=== PATIENT | female | born 1955 | race Caucasian/White ===

== ENCOUNTER 2021-09-27 07:48 | Observation (INO) | payer MEDICARE, BC, SELFPAY ==
[2021-09-27] VITALS (12 sets, daily range): BP systolic 100–153; BP diastolic 53–83; PULSE 46–67; RESP 10–18; TEMP 36.2–36.9; O2SAT 96–100; BMI 22.7; BMI 22.3
--- NOTE | 2021-09-27 08:05 | CRLHL7_ITS ---
For Patients: As a result of the Century Cures Act, medical imaging exams and procedure reports are released immediately into your electronic medical record. You may view this report before your referring provider. If you have questions, please contact your health care provider. INDICATION: Fall, hit back of head. TECHNIQUE: CT head without contrast. COMPARISON: None. FINDINGS: CSF spaces: Within normal limits for age. Brain parenchyma and extra-axial spaces: The kyle-white differentiation is normal. No sign of mass, hemorrhage, or midline shift. No extra-axial fluid collection. Skull base and calvarium: Posterior scalp laceration/contusion. The visualized paranasal sinuses and mastoid air cells demonstrate no acute or significant findings. The visualized orbits are grossly unremarkable. No skull fractures. IMPRESSION: Posterior scalp laceration/contusion. No intracranial hemorrhage. No displaced skull fracture. Please note that all CT scans at this facility use dose modulation, iterative reconstruction, and/or weight-based dosing when appropriate to reduce radiation dose to as low as reasonably achievable. Dictated by Raymond Sheridan MD @ 09/27/2021 8:56:19 AM (Electronically Signed)
--- NOTE | 2021-09-27 08:08 | ED.GENADULT ---
HPI - General Adult General Time Seen by Provider: 08:08 Date Seen: 09/27/21 Chief complaint: Dizziness/Vertigo Stated complaint: Fainted, hit back head, on blood thinners Time Seen by Provider: 09/27/21 07:53 Source: patient Mode of arrival: ambulatory Limitations: no limitations History of Present Illness HPI narrative: The patient is a 66-year-old female was out walking today, felt dizzy, and fell back and hit the back of her head. She had no seizure activity, had no chest pain, had no focal neurologic weakness or changes. She just simply felt dizzy and then she fell backwards and passed out. In the last couple of weeks she started on Eliquis and metoprolol for paroxysmal atrial fibrillation, her EKG today shows sinus rhythm bradycardic at a rate of 51 beats per minute no acute ST T wave changes by my read. The patient still feels lightheaded, especially when she sits up. She has felt tired and a little bit lightheaded since she started the beta-juan. She is on Eliquis as well as mentioned, otherwise reports no significant health history. Her neck, back, pelvis, upper lower extremities are unremarkable for any injury or pain. She has had full range of motion of her neck. She is alert oriented x3 now Related Data Home Medications Medication Instructions Recorded Confirmed apixaban 5 mg tablet (Eliquis) 5 mg PO BID 09/27/21 09/27/21 biotin 1,000 mcg chewable tablet 2,000 mcg PO DAILY 09/27/21 09/27/21 calcium carbonate 500 mg calcium 500 mg PO DAILY 09/27/21 09/27/21 (1,250 mg) tablet (Oyster Shell Calcium) estradiol 0.01% (0.1 mg/gram) 1 g VAGINAL 2XW 09/27/21 09/27/21 vaginal cream levothyroxine 75 mcg tablet 75 mcg PO DAILY 09/27/21 09/27/21 metoprolol tartrate 25 mg tablet 12.5 mg PO BID 09/27/21 09/27/21 multivitamin with minerals-folic 2 tab PO DAILY 09/27/21 09/27/21 acid 200 mcg chewable tablet (Adult One Daily Gummies) Allergies Allergy/AdvReac Type Severity Reaction Status Date / Time No Known Drug Allergies Allergy Verified 09/27/21 10:03 Review of Systems Status of ROS: Reports: 10 or more systems reviewed and unremarkable except as noted in History and below [facility] Social History Smoking Status: Never smoker Second hand tobacco smoke exposure: No How often do you have a drink containing alcohol: monthly or less AUDIT-C Alcohol total score: 1 Non-prescribed substance use: denies use Exam Narrative: Exam Narrative: Objective: Patient is in no apparent distress, looks to slightly pale Vital signs as recorded HEENT is unremarkable other than a bit of bleeding in the back of her scalp this will need to be cleaned and we will examine it further, gloved exam shows no palpable step-off in the back of the skull occipital region. Pupils aggression light No facial asymmetry Pupil no mouth changes Neck is supple nontender no midline pain Chest nontender, lungs are clear, heart rhythm rhythm regular without murmur Abdomen benign Extremities are no edema neurologic nonfocal Skin is warm she is, slightly pale, mental status appropriate Const: Vital Signs, click to edit/add: Vital Signs - 24 hr 09/27/21 08:30 09/27/21 09:00 09/27/21 09:30 Temperature 98.5 F Pulse Rate [Right Pulse Oximeter] 46 L 48 L 48 L Respiratory Rate 18 16 16 Blood Pressure [Ri ght Upper Arm] 136/79 139/80 144/81 H Pulse Oximetry 98 98 100 09/27/21 10:00 09/27/21 11:00 Temperature Pulse Rate [Right Pulse Oximeter] 47 L 51 L Respiratory Rate 10 L 14 Blood Pressure [Ri ght Upper Arm] 153/83 H Pulse Oximetry 100 Course Vital Signs Vital signs: Initial Vital Signs Temperature 98.5 F 09/27/21 08:30 Temperature Source Temporal Artery Scan 09/27/21 08:30 Pulse Rate 53 L 09/27/21 08:30 Respiratory Rate 18 09/27/21 08:30 Blood Pressure 145/83 H 09/27/21 08:30 Blood Pressure Mean 103 09/27/21 08:30 Blood Pressure Position Sitting 09/27/21 08:30 Pulse Oximetry 97 09/27/21 08:30 Oxygen Delivery Method 09/27/21 08:30 Vital Signs Temperature 98.5 F 09/27/21 08:30 Pulse Rate 53 L 09/27/21 08:30 Respiratory Rate 18 09/27/21 08:30 Blood Pressure 145/83 H 09/27/21 08:30 Pulse Oximetry 97 09/27/21 08:30 Temperature 97.4 F L 09/27/21 15:12 Pulse Rate 48 L 09/27/21 15:12 Respiratory Rate 16 09/27/21 15:12 Blood Pressure 144/77 H 09/27/21 15:12 Pulse Oximetry 100 09/27/21 15:12 Medical Decision Making MDM Narrative Medical decision making narrative: Because the patient is on Eliquis and because of her syncopal episode and obvious head trauma will get a head CT scan without contrast. Will get a 90 minute cardiac rule-out protocol. Will get EKGs, IV fluids 1 L, electrolytes and labs. The patient was dizzy, which could be from her new beta-juan, or dehydration. Rule out acute coronary syndrome, rule out dehydration, electrolyte abnormality, neurologic issue. Addendum: The patient's head CT is negative by my review,, Radiology confirms. Procedure: The patient had a complex stellate laceration on the occipital area of her scalp mid occiput, there is no palpable step-off noted. After sterile splinting the wound was injected with 1% xylocaine with epinephrine, and closed with 3-0 simple ruptured sutures. The total laceration length was about 5 cm including the stellate arms of the laceration. Good skin is edge approximation good hemostasis. Patient get sutures removed in 7 days. Lab studies show a normal troponin, 2nd 1 will be done, EKG shows sinus bradycardia otherwise unremarkable. This will be repeated as well. Patient's laboratory studies otherwise look unremarkable. The exception would be her proBNP is elevated at 1290. Will repeat another troponin, and given the patient's dizziness lightheadedness with a beta-juan and her relative bradycardia I think she should stop this for now. Recheck with Dr. Horan in the next couple of days. And then consult with Cardiology as necessary. Light activity recommended at this point. Would hold Eliquis today and restart tomorrow. Dr. Stephen hernandez will accept the patient for observation given her bradycardia and elevated proBNP. Consulted with Cardiology they felt that simply stopping her beta juan was appropriate and monitoring. The patient still feels quite short dizzy when she gets out of bed or goes to the bathroom. I would anticipate she would improve her heart rate with the discontinuation of beta-juan over the next day, and be able to be discharged home. Further workup pending clinical situation. Lab Data Labs: Lab Results 09/27/21 09/27/21 09/27/21 Range/Units 08:00 08:00 08:00 WBC (4.50-11.00) K/uL RBC (4.00-5.20) m/uL Hgb (12.0-16.0) gm/dL Hct (33.0-51.0) % MCV (80-100) fL MCH (26-34) pg MCHC (32-36) gm/dL RDW Coeff of Frankie (11.5-15.5) % Plt Count (140-440) K/uL Neut % (Auto) (42.0-72.0) % Lymph % (Auto) (20-44) % Sampson % (Auto) (0.0-11.0) % Eos % (Auto) (0.0-7.0) % Baso % (Auto) (0.0-3.0) % Neut # (Auto) (1.7-7.0) K/uL Lymph # (Auto) (0.90-2.90) K/uL Sampson # (Auto) (0.00-0.90) K/UL Eos # (Auto) (0.00-0.50) K/uL Baso # (Auto) (0.00-0.30) K/uL Abs Immat Gran (auto) (0.00-0.30) K/uL INR 1.10 (0.91-1.10) APTT 32 (23-33) Seconds Sodium 138 (135-149) mmol/L Potassium 4.1 (3.6-5.1) mmol/L Chloride 108 (96-114) mmol/L Carbon Dioxide 24 (20-32) mmol/L BUN 22 (7-30) mg/dL Creatinine 0.9 (0.5-1.5) mg/dL Estimated Creat Clear 54.54 Estimated GFR 71 ml/min Glucose 130 H (60-115) mg/dL Lactate 1.8 (0.5-1.9) mmol/L Calcium 9.2 (8.4-10.6) mg/dL Total Bilirubin 1.0 (0.1-1.5) mg/dL Direct Bilirubin 0.1 (0.0-0.5) mg/dL AST 34 (12-35) U/L ALT 33 (4-35) U/L Alkaline Phosphatase 75 (40-150) U/L C-Reactive Protein 0.9 (0.5-1.0) mg/dL NT-Pro-B Natriuret Pep 1290 H (0-125) PG/mL Total Protein 7.9 (6.0-8.3) g/dL Albumin 4.3 (3.3-5.0) g/dL Amylase 98 H (18-89) U/L SARS-CoV-2 (PCR) (Negative) POC Troponin I (0.01-0.04) ng/ml 09/27/21 09/27/21 09/27/21 Range/Units 08:05 08:06 09:30 WBC (4.50-11.00) K/uL RBC (4.00-5.20) m/uL Hgb (12.0-16.0) gm/dL Hct (33.0-51.0) % MCV (80-100) fL MCH (26-34) pg MCHC (32-36) gm/dL RDW Coeff of Frankie (11.5-15.5) % Plt Count (140-440) K/uL Neut % (Auto) (42.0-72.0) % Lymph % (Auto) (20-44) % Sampson % (Auto) (0.0-11.0) % Eos % (Auto) (0.0-7.0) % Baso % (Auto) (0.0-3.0) % Neut # (Auto) (1.7-7.0) K/uL Lymph # (Auto) (0.90-2.90) K/uL Sampson # (Auto) (0.00-0.90) K/UL Eos # (Auto) (0.00-0.50) K/uL Baso # (Auto) (0.00-0.30) K/uL Abs Immat Gran (auto) (0.00-0.30) K/uL INR (0.91-1.10) APTT (23-33) Seconds Sodium (135-149) mmol/L Potassium (3.6-5.1) mmol/L Chloride (96-114) mmol/L Carbon Dioxide (20-32) mmol/L BUN (7-30) mg/dL Creatinine (0.5-1.5) mg/dL Estimated Creat Clear Estimated GFR ml/min Glucose (60-115) mg/dL Lactate (0.5-1.9) mmol/L Calcium (8.4-10.6) mg/dL Total Bilirubin (0.1-1.5) mg/dL Direct Bilirubin (0.0-0.5) mg/dL AST (12-35) U/L ALT (4-35) U/L Alkaline Phosphatase (40-150) U/L C-Reactive Protein (0.5-1.0) mg/dL NT-Pro-B Natriuret Pep (0-125) PG/mL Total Protein (6.0-8.3) g/dL Albumin (3.3-5.0) g/dL Amylase (18-89) U/L SARS-CoV-2 (PCR) Negative SARS-CoV-2 (Negative) POC Troponin I 0.00 L 0.00 L (0.01-0.04) ng/ml 09/27/21 Range/Units 09:41 WBC 10.75 (4.50-11.00) K/uL RBC 4.61 (4.00-5.20) m/uL Hgb 14.3 (12.0-16.0) gm/dL Hct 42.3 (33.0-51.0) % MCV 92 (80-100) fL MCH 31 (26-34) pg MCHC 34 (32-36) gm/dL RDW Coeff of Frankie 12.2 (11.5-15.5) % Plt Count 164 (140-440) K/uL Neut % (Auto) 77.1 H (42.0-72.0) % Lymph % (Auto) 14.5 L (20-44) % Sampson % (Auto) 6.7 (0.0-11.0) % Eos % (Auto) 1.3 (0.0-7.0) % Baso % (Auto) 0.1 (0.0-3.0) % Neut # (Auto) 8.30 H (1.7-7.0) K/uL Lymph # (Auto) 1.60 (0.90-2.90) K/uL Sampson # (Auto) 0.70 (0.00-0.90) K/UL Eos # (Auto) 0.14 (0.00-0.50) K/uL Baso # (Auto) 0.01 (0.00-0.30) K/uL Abs Immat Gran (auto) 0.03 (0.00-0.30) K/uL INR (0.91-1.10) APTT (23-33) Seconds Sodium (135-149) mmol/L Potassium (3.6-5.1) mmol/L Chloride (96-114) mmol/L Carbon Dioxide (20-32) mmol/L BUN (7-30) mg/dL Creatinine (0.5-1.5) mg/dL Estimated Creat Clear Estimated GFR ml/min Glucose (60-115) mg/dL Lactate (0.5-1.9) mmol/L Calcium (8.4-10.6) mg/dL Total Bilirubin (0.1-1.5) mg/dL Direct Bilirubin (0.0-0.5) mg/dL AST (12-35) U/L ALT (4-35) U/L Alkaline Phosphatase (40-150) U/L C-Reactive Protein (0.5-1.0) mg/dL NT-Pro-B Natriuret Pep (0-125) PG/mL Total Protein (6.0-8.3) g/dL Albumin (3.3-5.0) g/dL Amylase (18-89) U/L SARS-CoV-2 (PCR) (Negative) POC Troponin I (0.01-0.04) ng/ml Discharge Plan Discharge Clinical Impression: Syncope, Head injury Prescriptions: No Action levothyroxine 75 mcg tablet 75 mcg PO DAILY 0RF metoprolol tartrate 25 mg tablet 12.5 mg PO BID 0RF Eliquis 5 mg tablet 5 mg PO BID 0RF estradiol 0.01 % (0.1 mg/gram) cream 1 g VAGINAL 2XW 0RF Label Comments: INSERT 1 GRAM INTO THE VAGINA EVERY SATURDAY AND SATURDAY. Adult One Daily Gummies 200 mcg tablet,chewable 2 tab PO DAILY 0RF calcium carbonate [Oyster Shell Calcium] 500 mg calcium (1,250 mg) tablet 500 mg PO DAILY 0RF biotin 1,000 mcg tablet,chewable 2,000 mcg PO DAILY 0RF Follow Up/Referrals: Tammi Garnica DO [Primary Care Provider] -
[2021-09-27 08:28] LABS: Lactate* 1.8 mmol/L (0.5-1.9)
[2021-09-27 08:44] LABS: Albumin* 4.3 g/dL (3.3-5.0); Chloride* 108 mmol/L (96-114)
[2021-09-27 08:45] LABS: Potassium* 4.1 mmol/L (3.6-5.1); Sodium* 138 mmol/L (135-149)
[2021-09-27 08:47] LABS: Amylase* 98 U/L (18-89); Bilirubin Direct* 0.1 mg/dL (0.0-0.5); Carbon Dioxide* 24 mmol/L (20-32); Creatinine* 0.9 mg/dL (0.5-1.5); Est. Creatinine Clearance* 54.54; Estimated Glomerular Filt Rate 71 ml/min; Partial Thromboplastin Time* 32 Seconds (23-33); Prothrombin Time 14.7 Seconds; Total Protein* 7.9 g/dL (6.0-8.3)
[2021-09-27 08:48] LABS: Alanine Aminotransferase* 33 U/L (4-35); Alkaline Phosphatase* 75 U/L (40-150); Aspartate Amino Transferase* 34 U/L (12-35); Blood Urea Nitrogen* 22 mg/dL (7-30); Calcium* 9.2 mg/dL (8.4-10.6); Glucose* 130 mg/dL (60-115)
[2021-09-27 08:50] LABS: C Reactive Protein* 0.9 mg/dL (0.5-1.0)
[2021-09-27] MEDS: 0.9 % SODIUM CHLORIDE 1000 ml 1,000 ML 6000 ML IV (08:53)
[2021-09-27 09:12] LABS: NT Pro B Type NatriureticPept* 1290 PG/mL (0-125)
[2021-09-27 09:25] LABS: SARS PCR* Negative SARS-CoV-2 (Negative)
--- NOTE | 2021-09-27 09:56 | CRLHL7_ITS ---
For Patients: As a result of the Cures Act, medical imaging exams and procedure reports are released immediately into your electronic medical record. You may view this report before your referring provider. If you have questions, please contact your health care provider. INDICATION: Syncope; rule out PE. Comparison: None. TECHNIQUE: CT chest with intravenous contrast; coronal and sagittal reformats. FINDINGS: No CT evidence of pulmonary thromboembolism. Normal size cardiac silhouette without any pericardial effusion. No abnormal mediastinal or hilar lymphadenopathy. No endobronchial pathology. No evidence of pleural effusion or chest wall pathology. No abnormal intra pulmonary nodular densities at identified. Limited CT through the upper abdomen is unremarkable. IMPRESSION: 1. No CT evidence of pulmonary thromboembolism. 2. Negative chest CT with intravenous contrast. Please note that all CT scans at this facility use dose modulation, iterative reconstruction, and/or weight-based dosing when appropriate to reduce radiation dose to as low as reasonably achievable. Dictated by Henry Gavin MD @ 09/27/2021 11:18:29 AM (Electronically Signed)
[2021-09-27 09:57] LABS: Basophils Absolute Auto 0.01 K/uL (0.00-0.30); Basophils Percent Auto 0.1 % (0.0-3.0); Eosinophils Absolute Auto 0.14 K/uL (0.00-0.50); Eosinophils Percent Auto 1.3 % (0.0-7.0); Hematocrit 42.3 % (33.0-51.0); Hemoglobin* 14.3 gm/dL (12.0-16.0); Immature Granulocytes Abs Auto 0.03 K/uL (0.00-0.30); Lymphocytes Percent Auto 14.5 % (20-44); Mean Corpuscular HGB Conc 34 gm/dL (32-36); Mean Corpuscular Hemoglobin 31 pg (26-34); Mean Corpuscular Volume 92 fL (80-100); Monocytes Percent Auto 6.7 % (0.0-11.0); Neutrophils Percent Auto 77.1 % (42.0-72.0); Platelet Count* 164 K/uL (140-440); RDW Coefficient of Variation % 12.2 % (11.5-15.5); Red Blood Count 4.61 m/uL (4.00-5.20); White Blood Count* 10.75 K/uL (4.50-11.00)
[2021-09-27 10:01] LABS: Slide Review Reflex No
--- NOTE | 2021-09-27 10:52 | W.PC.EDHO ---
Primary Language: Preferred Language: Orientation Status: [] Alert & Oriented [] Slight Confusion [] Known Dx Dementia Transfers By: [] Assist of 1 [] Assist of 2 [] Lift Active Medications Discontinued Medications Generic Name Dose Route Start Last Admin Trade Name Montez PRN Reason Stop Dose Admin Sodium Chloride 1,000 mls @ 6,000 mls/hr 09/27/21 08:15 09/27/21 09:57 0.9 % Sodium Chloride 1000 Ml IV 09/27/21 08:24 Infused .Q10M GAMA Infusion Description of Symptoms ED Triage Present Problem was on a walk and fainted, falling backwards and Description striking back of head. is on elloquist. continues to feel light headed and clammy Female History Patient Patient No [place] Coma Scale [place] coma scale total score 15 Pain Pain Description [Posterior Dull, Achy Head] IV Insertion/Site Date of IV Line Insertion [ 09/27/21 Left Antecubital] Oxygen Administration Pulse Oximetry 100 Pulse Oximetry 98 Pulse Oximetry 98 Pulse Oximetry 97 Oxygen Delivery Method Room Air Oxygen Delivery Method Room Air Oxygen Delivery Method Room Air Oxygen Delivery Method Room Air Cardiac Monitoring EKG Method 12 Lead EKG Method 12 Lead
[2021-09-27] MEDS: ACETAMINOPHEN 325 MG TABLET 650 MG PO (13:37)
--- NOTE | 2021-09-27 17:06 | PM.IMHP1 ---
Hospitalist- H&P: [facility] History of Present Illness Date Seen: 09/27/21 Chief complaint: Fainted, hit back head, on blood thinners Narrative: Shelby Cortes is a 66 year old female with atrial fibrillation on anticoagulation who had a syncopal episode this morning. She went for a walk. She started to feel lightheaded during her walk and was moving to sit down when she apparently lost consciousness. The next thing she remembers is lying on the ground, bleeding from the back of her scalp with people around her checking on her. Her brought her to the emergency department. She has had a 15 year history of paroxysmal atrial fibrillation. On September 05 she saw her assembler faucets who had her start on apixaban for stroke prophylaxis with a CHADS2 Vasc score of 2 and started her on metoprolol tartrate 12.5 mg twice daily for rate control when she is in AFib. Since starting the metoprolol she does feel like she has a little bit of fatigue and perhaps some exercise intolerance. She has not had previous syncope. She has not any previous history of seizure disorder. She is otherwise not been feeling ill. No chest pain, dyspnea, fever, cough, nausea, vomiting. She has had normal intake of food and fluid. She reports her stools are somewhat more loose since starting the metoprolol but not diarrhea and no blood in her stool. Two months ago she had a Zio patch placed. This showed afib 24% of the time with a minimum heart rate of 41 and a maximum heart rate of 214. Her average heart rate was 77. Her long sepsis sewed of atrial fibrillation lasted 47 hours with a rate of 105. When that occurred she did note some fatigue. Minimal ventricular ectopy. At the time of her cardiology appointment on September 05 she was in sinus rhythm with a heart rate of 51. She has not yet taken metoprolol or Eliquis today. In the emergency department evaluation showed no significant intracranial injury. She had a laceration on the back her scalp which was repaired. She reports currently feeling fine other than soreness in the back of her head. Review of Systems Narrative: Patient reports that she has been feeling well except for events described above. No other recent illness. She has had no other significant cardia respiratory symptoms, lightheadedness, loss of consciousness, history of seizures, history of bleeding or clotting problems. [facility] Medical History (Updated 09/27/21 @ 17:24 by Brayan Ng MD) Hypothyroidism Paroxysmal atrial fibrillation Raynauds disease Surgical History (Updated 09/27/21 @ 17:19 by Brayan Ng MD) H/O wisdom tooth extraction History of colonoscopy Family History (Updated 09/27/21 @ 17:20 by Brayan Ng MD) Mother Stroke Father Coronary artery disease Social History (Updated 09/27/21 @ 17:21 by Brayan Ng MD) Narrative: She lives in [place] with her . 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 Code status is full. 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 Smoking Status: Never smoker Second hand tobacco smoke exposure: No How often do you have a drink containing alcohol: monthly or less AUDIT-C Alcohol total score: 1 Non-prescribed substance use: denies use Meds Home Medications and Allergies Home Medications Medication Instructions Recorded Confirmed Type apixaban 5 mg tablet (Eliquis) 5 mg PO BID 09/27/21 09/27/21 History biotin 1,000 mcg chewable tablet 2,000 mcg PO DAILY 09/27/21 09/27/21 History calcium carbonate 500 mg calcium 500 mg PO DAILY 09/27/21 09/27/21 History (1,250 mg) tablet (Oyster Shell Calcium) estradiol 0.01% (0.1 mg/gram) 1 g VAGINAL 2XW 09/27/21 09/27/21 History vaginal cream levothyroxine 75 mcg tablet 75 mcg PO DAILY 09/27/21 09/27/21 History metoprolol tartrate 25 mg tablet 12.5 mg PO BID 09/27/21 09/27/21 History multivitamin with minerals-folic 2 tab PO DAILY 09/27/21 09/27/21 History acid 200 mcg chewable tablet (Adult One Daily Gummies) Allergies Allergy/AdvReac Type Severity Reaction Status Date / Time No Known Drug Allergies Allergy Verified 09/27/21 10:03 Exam Narrative: Exam Narrative: She is alert and appears in no distress. Head is bandaged with a circumferential gauze. There is some staining of blood on the back of the bandage. No other obvious trauma. Eyes are normal. Pupils are equal round reactive to light. Extraocular movements are full. Oropharynx is normal. There is no facial asymmetry. Neck is supple without mass or adenopathy or tenderness. Respirations are clear to auscultation. Cardiovascular: S1, S2, regular bradycardia. No murmur gallop or rub. Abdomen: Bowel sounds active. Abdomen is soft without tenderness or mass. Extremities without edema. She has good peripheral pulses. She moves all 4 extremities well. Const: Vital Signs, click to edit/add: Vital Signs - 24 hr 09/27/21 08:30 09/27/21 09:00 09/27/21 09:30 Temperature 98.5 F Pulse Rate Pulse Rate [Right Pulse Oximeter] 46 L 48 L 48 L Respiratory Rate 18 16 16 Blood Pressure [Ri ght Arm] Blood Pressure [Ri ght Upper Arm] 136/79 139/80 144/81 H Pulse Oximetry 98 98 100 09/27/21 10:00 09/27/21 11:00 09/27/21 11:10 Temperature Pulse Rate Pulse Rate [Right Pulse Oximeter] 47 L 51 L 49 L Respiratory Rate 10 L 14 10 L Blood Pressure [Ri ght Arm] Blood Pressure [Ri ght Upper Arm] 153/83 H 137/72 Pulse Oximetry 100 100 09/27/21 15:00 09/27/21 15:12 09/27/21 15:37 Temperature 97.4 F L 97.1 F L Pulse Rate 57 L Pulse Rate [Right Pulse Oximeter] 48 L 67 Respiratory Rate 16 16 Blood Pressure [Ri ght Arm] 144/77 H 121/69 Blood Pressure [Ri ght Upper Arm] Pulse Oximetry 100 100 Documenting provider has reviewed patient's vital signs: yes Hospitalist - H&P: Result Labs Labs: Short CBC 09/27/21 Range/Units 09:41 WBC 10.75 (4.50-11.00) K/uL Hgb 14.3 (12.0-16.0) gm/dL Hct 42.3 (33.0-51.0) % Plt Count 164 (140-440) K/uL BMP 09/27/21 08:00 Sodium 138 Potassium 4.1 Chloride 108 Carbon Dioxide 24 BUN 22 Creatinine 0.9 Glucose 130 H Calcium 9.2 Liver Function 09/27/21 Range/Units 08:00 Total Bilirubin 1.0 (0.1-1.5) mg/dL Direct Bilirubin 0.1 (0.0-0.5) mg/dL AST 34 (12-35) U/L ALT 33 (4-35) U/L Alkaline Phosphatase 75 (40-150) U/L Albumin 4.3 (3.3-5.0) g/dL ECG Attestation: I personally reviewed and interpreted this ECG as follows: (Electrocardiogram shows sinus bradycardia, rate of 45. Otherwise unremarkable) Imaging CT scan - chest: Radiologist's impression: Chest CT shows no PE and no acute abnormality Assessment and Plan Assessment and plan (1) Syncope: Status: Acute Assessment and Plan: Loss of consciousness likely syncope, likely due to bradycardia with beta-juan use in the context of paroxysmal atrial fibrillation. Will stop metoprolol for now. Difficult decisions about managing her rate control when she is in atrial fibrillation with baseline sinus bradycardia (2) Paroxysmal atrial fibrillation: Status: Acute Assessment and Plan: Continue monitoring of her heart rate and rhythm and vital signs well holding metoprolol. (3) Head injury: Status: Acute Assessment and Plan: No significant ongoing symptoms suggestive of significant concussion. Head lacerations been sutured. Will hold apixaban overnight due to ongoing oozing of blood. (4) Bradycardia: Status: Acute Assessment and Plan: Stop metoprolol and reassess outpatient plan for management of atrial fibrillation
[2021-09-27] MEDS: ACETAMINOPHEN 500 MG TABLET 1000 MG PO (19:45)
--- NOTE | 2021-09-27 21:59 | PC.NURSE ---
Addendum entered by Yrn Figueroa RN 09/27/21 22:26: Pt seems to have a bit of an S2 click Addendum entered by Yrn Figueroa RN 09/27/21 22:01: Gauze wrap to head CDI Original Note: VSS RA. Tele Sinus James. Tylenol given for slight vague achiness. Neuro checks done WNL. Is slightly dizzy on standing but ambulates to BR steady on feet. Ind w/cares. Tolerating diet.
[2021-09-28 03:00] VITALS: BP 117/59; PULSE 56; RESP 16; TEMP 36.5; O2SAT 100
--- NOTE | 2021-09-28 05:18 | PC.NURSE ---
Shift 7p-7a: Pt. AOx4, following commands. VSS on RA, pt. on Tele monitoring for bradycardia. Pt. ambulating independently to bathroom w/o difficulty, voiding adequately. Pt. denies dizziness/lightheadedness when ambulating. Pt. denies pain, PRN tylenol if needed. Pt.'s dressing around suture site dry and intact with slight old drainage. Plan for possible discharge today
[2021-09-28] MEDS: LEVOTHYROXINE 75 MCG TABLET PO (06:37)
[2021-09-28 07:37] VITALS: PULSE 52; RESP 16
[2021-09-28] MEDS: ACETAMINOPHEN 500 MG TABLET 1000 MG PO (07:43)
[2021-09-28 07:46] VITALS: BP 119/80; PULSE 52; RESP 17; TEMP 36.3; O2SAT 94
[2021-09-28 12:00] VITALS: BP 118/69; PULSE 47; RESP 16; TEMP 36.4; O2SAT 96
[2021-09-28 14:37] VITALS: PULSE 53
--- NOTE | 2021-09-28 15:03 | PM.DS1 ---
DS: Providers Provider Date Seen: 09/28/21 Date of admission: 09/27/21 14:57 Primary care physician: Tammi Garnica DO Admitting Clinician: Manav Jamil MD Attending Physician on discharge: Manav Jamil MD Date of Discharge: 09/28/21 DS: Summary Hospital Course Hospital Course: HOSPITALIST DISCHARGE SUMMARY ATTENDING PHYSICIAN: Gaby Ward MD FINAL DIAGNOSIS: Bradycardia induced syncopal event Iatrogenic bradycardia from metoprolol Scalp laceration, status post 8 interrupted sutures HOSPITAL FOLLOWUP ISSUES: Cardiology; discuss role of beta-blockade and anticoagulation REFERRALS WHILE ADMITTED: None REFERRALS AFTER DISCHARGE: None BRIEF HOSPITAL COURSE: Shelby is admitted after a fall. Please see H&P for further detail. Syncopal episode causing the fall was likely related to her iatrogenic bradycardia from New dosing of metoprolol. He has AFib and recently was evaluated by Cardiology and felt that as she aged her risk for stroke and need for rate control was increasing. The metoprolol was started about a month ago as was her oral anticoagulation. When she fell she had the back of her head and split open her scalp. She required 8 sutures in the ED. bleeding was controlled with intervention. Overnight she was bradycardic to the low 50s. Her wound was dry this morning. Her echocardiogram done on admission was normal. She has been in sinus. VITAL SIGN, MEDICATION, LAB/MICRO, IMAGING SUMMARY (full details available in account tabs or by records request) Final Impressions: 1. Normal left ventricular size, normal wall thickness, normal global systolic function, calculated EF of 65 %. 2. Right ventricular cavity size is normal, global systolic RV function is normal. 3. No significant valve disease detected. DISCHARGE MEDICATIONS: See Reconciled list - we are holding her metoprolol and her blood thinner. REVIEW OF SYSTEMS No new chest pain or dyspnea Pain controlled No voiding difficulties Tolerating diet challenge PHYSICAL EXAM: CONSTITUTIONAL: VITAL SIGNS: see record. HEENT: Normocephalic, atraumatic. PERRL, EOMI, conjunctivae pink, no scleral icterus. Ears and nose externally normal. Pharynx normal. Scalp examined and noted to be matted with dried blood but sutures were intact and there was no oozing from her wound. NECK: No JVD. No carotid bruit, no thyromegaly, no adenopathy. CHEST: Clear to auscultation bilaterally. HEART: S1 and S2 normal. Edema ABDOMEN: Soft, nontender. Normal bowel sounds. MUSCULOSKELETAL: No gross joint deformity or swelling. NEURO: Cranial nerves intact. Grossly intact. No asymmetric findings. SKIN: No rashes, petechiae, concerning changes PSYCHIATRIC: Mood euthymic. DISPOSITION: Home Time spent on discharge 37 minutes. Status at Discharge Functional status at discharge: independent ambulation Time Spent with Patient Time attestation: Total time spent providing and/or coordinating discharge services: Time spent: Greater than 30 minutes Exam Const: Vital Signs, click to edit/add: Vital Signs - 24 hr 09/27/21 15:12 09/27/21 15:37 09/27/21 19:53 Temperature 97.4 F L 97.1 F L 97.7 F Pulse Rate Pulse Rate [Right Pulse Oximeter] 48 L 67 56 L Respiratory Rate 16 16 16 Blood Pressure [Ri ght Arm] 144/77 H 121/69 105/66 Pulse Oximetry 100 100 97 09/27/21 23:00 09/28/21 03:00 09/28/21 07:46 Temperature 97.9 F 97.7 F 97.4 F L Pulse Rate 55 L Pulse Rate [Right Pulse Oximeter] 55 L 56 L 52 L Respiratory Rate 16 16 17 Blood Pressure [Ri ght Arm] 100/53 L 117/59 L 119/80 Pulse Oximetry 96 100 94 09/28/21 12:00 Temperature 97.6 F Pulse Rate Pulse Rate [Right Pulse Oximeter] 47 L Respiratory Rate 16 Blood Pressure [Ri ght Arm] 118/69 Pulse Oximetry 96 Discharge Plan Discharge Disposition: Home, Self-Care Date of Admission: 09/27/21 14:57 Attending Provider on Discharge: Gaby Ward Primary Care Provider: Tammi Garnica Condition: Improved Anticipated Discharge Date/Time: 09/28/21 14:53 Discharge Medications: Continued levothyroxine 75 mcg tablet 75 mcg PO DAILY 0RF estradiol 0.01 % (0.1 mg/gram) cream 1 g VAGINAL 2XW 0RF Label Comments: INSERT 1 GRAM INTO THE VAGINA EVERY SATURDAY AND SATURDAY. Adult One Daily Gummies 200 mcg tablet,chewable 2 tab PO DAILY 0RF calcium carbonate [Oyster Shell Calcium] 500 mg calcium (1,250 mg) tablet 500 mg PO DAILY 0RF biotin 1,000 mcg tablet,chewable 2,000 mcg PO DAILY 0RF Held metoprolol tartrate 25 mg tablet 12.5 mg PO BID 0RF Hold Instructions: Secondary to the low heart rate and recent syncopal episode, please hold all beta blockers i.e. 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 Eliquis 5 mg tablet 5 mg PO BID 0RF Hold Instructions: Just told this until you follow-up with your pinked edge sewing machine operator. Discharge Orders: Discharge Order (Routine); Ordered 09/28/21 Ordered By: Gaby Ward Patient Education: Bradycardia (IP) Activity Level: No Restrictions Discharge Diet: Regular Follow Up Appointments: pinked edge sewing machine operator, previous [Other] - 10/09/21 (I would like to have her see her pinked edge sewing machine operator in the next 1-2 weeks to discuss ongoing therapies with her beta-juan and blood thinner.) Tammi Garnica, DO [Primary Care Provider] - Forms: [facility] Info Instructions
--- NOTE | 2021-09-28 20:23 | PC.NURSE ---
Pt. up indep. in room, assisted in washing dried blood from hair and showered this AM. Tele showing sinus bradycardia. Pt. tolerated diet well. Discussed discharge information, answered questions and returned paperwork to chart. Pt. left M/S unit @ [id number].
== END 2021-09-28 16:24 | disposition home or self-care (01) ==
LOC: ED 08:53 → MEDSURG 15:16
PROVIDERS: Admitting Provider Hospitalist; Emergency Provider Family Medicine; PCP Family Medicine; Visit Provider Hospitalist
DX: R55 Syncope and collapse (principal); R00.1 Bradycardia, unspecified; I48.0 Paroxysmal atrial fibrillation; Z79.01 Long term (current) use of anticoagulants; S01.01XA Laceration without foreign body of scalp, initial encounter; W18.39XA Other fall on same level, initial encounter
CPT/HCPCS: 12032; 36415; 70450; 71260; 80048; 80076; 82150; 83605; 83880; 84484; 85025; 85610; 85730; 86140; 87635; 93005; 93306; 96360; 99285; G0378; A9270; G0379; J7030; Q9967